=== PATIENT | female | born 1965 | race Caucasian/White ===

== ENCOUNTER → 2016-05-14 | Outpatient (CLI) | payer BC ==
--- NOTE | 2016-05-15 07:48 | MM ---
Reason for exam: screening (asymptomatic). Last mammogram was performed 11 months ago. History: Family history of breast cancer in maternal grandmother and breast cancer in maternal aunt. Physical Findings: A clinical breast exam by your physician is recommended on an annual basis and results should be correlated with mammographic findings. MG 3D Screening Mammo W/Cad Bilateral CC and MLO view(s) were taken. Prior study comparison: June 06, 2015, bilateral MG 3d screening mammo w/cad. The breast tissue is heterogeneously dense. This may lower the sensitivity of mammography. No significant changes when compared with prior studies. ASSESSMENT: Benign, BI-RAD 2 RECOMMENDATION: Routine screening mammogram of both breasts in 1 year.
== END | disposition home or self-care (01) ==
LOC: RADMAMWWP 11:19
PROVIDERS: ATTEND Family Medicine
DX: Z12.31 Encounter for screening mammogram for malignant neoplasm of breast (principal)
CPT/HCPCS: 77063; G0202

== ENCOUNTER → 2019-01-05 | Outpatient (CLI) | payer OTHER ==
--- NOTE | 2019-01-05 11:24 | MM ---
Reason for exam: screening (asymptomatic). Last mammogram was performed 2 years and 8 months ago. History: Family history of breast cancer in maternal grandmother and breast cancer in maternal aunt. Took hormonal contraceptives for 6 months. Physical Findings: A clinical breast exam by your physician is recommended on an annual basis and results should be correlated with mammographic findings. MG 3D Screening Mammo W/Cad Bilateral CC and MLO view(s) were taken. Prior study comparison: May 14, 2016, bilateral MG 3d screening mammo w/cad. June 06, 2015, bilateral MG 3d screening mammo w/cad. The breast tissue is heterogeneously dense. This may lower the sensitivity of mammography. There is an increasing 3mm group of calcifications in the right upper outer quadrant at middle depth. Left central 7mm middle depth asymmetry. Rounded right lateral asymmetry is not seen on MLO and could relate to a vessel. Rolled views will clarify. ASSESSMENT: Incomplete: need additional imaging evaluation, BI-RAD 0 RECOMMENDATION: Special view mammogram of both breasts. If lesion persists on supplemental views, image directed ultrasound is recommended. [facility] will attempt to contact patient to return for supplemental views and ultrasound if indicated.
== END | disposition home or self-care (01) ==
LOC: RADMAMWWP 06:54
PROVIDERS: ATTEND Family Medicine
DX: Z12.31 Encounter for screening mammogram for malignant neoplasm of breast (principal)
CPT/HCPCS: 77063; 77067

== ENCOUNTER → 2019-01-12 | Outpatient (CLI) | payer OTHER ==
--- NOTE | 2019-01-12 10:03 | MM ---
Reason for exam: additional evaluation requested from abnormal screening. Last mammogram was performed less than 1 month ago. History: Patient is postmenopausal. Family history of breast cancer in maternal grandmother and breast cancer in maternal aunt at age 60. Took hormonal contraceptives for 6 months. Physical Findings: Nurse did not find any significant physical abnormalities on exam. MG 3D Work Up W/Cad BOONE Bilateral spot compression CC and ML view(s) were taken. Spot compression ML view(s) were taken of the right breast. Spot compression MLO view(s) were taken of the left breast. Prior study comparison: January 05, 2019, bilateral MG 3d screening mammo w/cad. May 14, 2016, bilateral MG 3d screening mammo w/cad. The breast tissue is heterogeneously dense. This may lower the sensitivity of mammography. There is three total grouped, round, heterogeneous calcifications in the upper outer breast. No distinct nodule/mass persists on additional views bilaterally. These results were verbally communicated with the patient and result sheet given to the patient on 01/12/19. ASSESSMENT: Probably benign, BI-RAD 3 RECOMMENDATION: Follow-up diagnostic mammogram of the right breast in 6 months.
== END | disposition home or self-care (01) ==
LOC: RADMAMWWP 06:50
PROVIDERS: ATTEND Family Medicine
DX: R92.8 Other abnormal and inconclusive findings on diagnostic imaging of breast (principal)
CPT/HCPCS: 77062; 77066

== ENCOUNTER 2019-06-01 08:04 | Observation (INO) | payer OTHER ==
[2019-06-01] MEDS ORDERED: ASPIRIN 81 MG PO STA (08:16)
--- NOTE | 2019-06-01 08:28 | ED ---
Chest Pain HPI <Jesse Cortes - Last Filed: 06/01/19 09:23> - General Source: patient Mode of arrival: wheelchair Limitations: no limitations <Leatha Wang - Last Filed: 06/01/19 10:09> - General Chief Complaint: Chest Pain Stated Complaint: Chest pain Time Seen by Provider: 06/01/19 08:10 - History of Present Illness Initial Comments: Patient is a 53-year-old female presenting to the emergency Department with complaints of intermittent chest pressure for the past 2 days. She's also had a cough and mild shortness of breath. She states she also feels like she is having heart palpitations at times. Patient denies history of heart disease. She has not had a stress test. Patient denies any recent travel, no history of blood clots. Patient describes the pain as pressure in the middle of her sternum. She states yesterday when she was at work she states the pain would come on at random times and last anywhere from one to 3 minutes. Patient states when she woke up this morning she was still feeling the pressure so she wanted to be seen. Currently she rates her discomfort as a 2 out of 10. Patient denies any recent fever, nausea, vomiting, diarrhea. She denies any abdominal pain. She has history of thyroid disease, no other pertinent past medical history. She has a history of hysterectomy. She has no other complaints at this time. Upon arrival to the ER, patient's BP is elevated at 167/107, rest of vitals are normal. (Leatha Wang) - Related Data Home Medications Medication Instructions Recorded Confirmed Ascorbic Acid [Vitamin C] 500 mg PO DAILY 06/01/19 06/01/19 Cholecalciferol [Vitamin D3 (25 1,000 unit PO DAILY 06/01/19 06/01/19 Mcg = 1000 Iu)] Cyanocobalamin (Vitamin B-12) 1,000 mcg PO DAILY 06/01/19 06/01/19 [Vitamin B-12] Dha 1 tab PO DAILY 06/01/19 06/01/19 Fluocinonide [Lidex .05%] 1 applic TOPICAL HS 06/01/19 06/01/19 Furosemide [Lasix] 20 mg PO DAILY 06/01/19 06/01/19 Levothyroxine Sodium [Synthroid] 112 mcg PO DAILY 06/01/19 06/01/19 Magnesium 200 mg PO DAILY 06/01/19 06/01/19 Phytonadione [Vitamin K] 5 mg PO DAILY 06/01/19 06/01/19 Selenium 50 mcg PO DAILY 06/01/19 06/01/19 Vitamin A 8,000 unit PO DAILY 06/01/19 06/01/19 Vitamin E 400 unit PO DAILY 06/01/19 06/01/19 guaiFENesin [Mucinex] 600 mg PO DAILY PRN 06/01/19 06/01/19 Allergies Allergy/AdvReac Type Severity Reaction Status Date / Time Penicillins Allergy Unknown Verified 06/01/19 09:09 Review of Systems ROS Other: All systems not noted in ROS Statement are negative. <Jesse Cortes - Last Filed: 06/01/19 09:23> ROS Other: All systems not noted in ROS Statement are negative. <Leatha Wang - Last Filed: 06/01/19 10:09> ROS Statement: Those systems with pertinent positive or pertinent negative responses have been documented in the HPI. EKG Findings - EKG Comments: EKG Findings:: Ventricular rate 73, IL interval 152, QTC 427. Normal sinus rhythm, normal ECG. No acute ST segment elevations. <Leatha Wang - Last Filed: 06/01/19 10:09> Past Medical History Past Medical History: Thyroid Disorder History of Any Multi-Drug Resistant Organisms: None Reported Past Surgical History: Hysterectomy Past Psychological History: No Psychological Hx Reported Smoking Status: Former smoker Past Alcohol Use History: None Reported Past Drug Use History: None Reported <Leatha Wang - Last Filed: 06/01/19 10:09> General Exam Limitations: no limitations <Leatha Wang - Last Filed: 06/01/19 10:09> - General Exam Comments Initial Comments: GENERAL: Well-appearing, well-nourished and in no acute distress. HEAD: Atraumatic, normocephalic. EYES: Pupils equal round and reactive to light, extraocular movements intact, sclera anicteric, conjunctiva are normal. ENT: TMs normal, nares patent, oropharynx clear without exudates. Moist mucous membranes. NECK: Normal range of motion, supple without lymphadenopathy or JVD. LUNGS: Breath sounds clear to auscultation bilaterally and equal. No wheezes rales or rhonchi. Mild dry cough noted. HEART: Regular rate and rhythm without murmurs, rubs or gallops. No pain with palpation of the sternum. ABDOMEN: Soft, nontender, normoactive bowel sounds. No guarding, no rebound. No masses appreciated. : Deferred EXTREMITIES: Normal range of motion, no pitting or edema. No clubbing or cyanosis. NEUROLOGICAL: Normal speech, normal gait. PSYCH: Normal mood, normal affect. SKIN: Warm, Dry, normal turgor, no rashes or lesions noted. (Leatha Wang) Course <Jesse Cortes - Last Filed: 06/01/19 09:23> Vital Signs 06/01/19 06/01/19 06/01/19 08:06 08:08 09:08 Temperature 97.9 F Pulse Rate 84 68 Respiratory 16 20 20 Rate Blood Pressure 167/107 144/83 O2 Sat by Pulse 96 96 Oximetry - Reevaluation(s) Reevaluation #1: 06/01/19 09:23 PA supervision: I personally evaluate this case patient will be admitted for evaluation of chest pain I did discuss the case with Dr. Rice. EKG does show no evidence of acute findings at this time. Patient did present with chest pain that is suspicious for angina. (Jesse Cortes) Chest Pain [facility] <Leatha Wang - Last Filed: 06/01/19 10:09> - [facility] Patient is a 53-year-old female, with thyroid disorder, presenting with chest pressure intermittently for the past 2 days. Denies history of heart disease, blood clots. BP slightly elevated upon arrival, rest of vitals normal. Normal ECG, no findings of acute ischemia. Patient's lab work is unremarkable, troponin is normal. Chest x-ray shows no acute findings. I discussed with patient that given her symptoms, patient will be admitted for serial troponin and cardiac consultation. Patient is in agreement with this plan of care. Case was discussed with Dr. Cortes. Patient was accepted by Dr. Rice. (Leatha Wang) Disposition <Jesse Cortes - Last Filed: 06/01/19 09:23> Is patient prescribed a controlled substance at d/c from ED?: No Decision Date: 06/01/19 Decision Time: 09:26 <Leatha Wang - Last Filed: 06/01/19 10:09> Clinical Impression: Chest pain Disposition: ADMITTED IP TO THIS [facility] Condition: Stable Referrals: Tavo Card III, MD [Primary Care Provider] - 1-2 days
[2019-06-01 08:31] LABS: Basophils # (A) 0.1 k/uL (0-0.2); Basophils % (A) 1 %; Eosinophils # (A) 0.5 k/uL (0-0.7); Eosinophils % (A) 5 %; HCT 41.5 % (34.0-46.0); HGB 13.9 gm/dL (11.4-16.0); Lymphocytes # (A) 2.1 k/uL (1.0-4.8); Lymphocytes % (A) 22 %; MCH 28.9 pg (25.0-35.0); MCHC 33.5 g/dL (31.0-37.0); MCV 86.4 fL (80.0-100.0); Monocytes # (A) 0.5 k/uL (0-1.0); Monocytes % (A) 5 %; Neutrophils # (A) 6.2 k/uL (1.3-7.7); Neutrophils % (A) 65 %; Platelet Count 240 k/uL (150-450); RDW 12.5 % (11.5-15.5); WBC 9.5 k/uL (3.8-10.6)
[2019-06-01 08:51] LABS: ALT 27 U/L (4-34); AST 27 U/L (14-36); African American GFR (CKD) >90 (>60 ml/min/1.73 sqM); Albumin 3.9 g/dL (3.5-5.0); Alkaline Phosphatase 73 U/L (38-126); Anion Gap 6 mmol/L; Blood Urea Nitrogen 14 mg/dL (7-17); Calcium 9.1 mg/dL (8.4-10.2); Carbon Dioxide 27 mmol/L (22-30); Chloride 104 mmol/L (98-107); Glucose 112 mg/dL (74-99); Magnesium 1.9 mg/dL (1.6-2.3); Non-African American GFR(CKD) >90 (>60 ml/min/1.73 sqM); Potassium 4.2 mmol/L (3.5-5.1); Sodium 137 mmol/L (137-145); Total Bilirubin 0.4 mg/dL (0.2-1.3); Total Protein 6.9 g/dL (6.3-8.2)
[2019-06-01 09:05] LABS: INR 0.9 (<1.2); Partial Thromboplastin Time 22.9 sec (22.0-30.0); Prothrombin Time 9.5 sec (9.0-12.0)
[2019-06-01] MEDS ORDERED: KETOROLAC 30 MG/ML 1 ML VIAL IVP STA (09:23)
[2019-06-01] MEDS ORDERED: NITROGLYCERIN SL TABS 0.4 MG TAB SUBLINGUAL PRN (09:26)
--- NOTE | 2019-06-01 09:41 | XR ---
EXAMINATION TYPE: XR chest 2V DATE OF EXAM: 06/01/2019 COMPARISON: NONE HISTORY: Shortness of breath per order. Chest pain per technologist. TECHNIQUE: Frontal and lateral views of the chest are obtained. FINDINGS: Overlying EKG leads are present. Slightly elevated and eventrated anterior aspect right hem idiaphragm. There is no focal air space opacity, pleural effusion, or pneumothorax seen. The cardiac silhouette size is within normal limits. The osseous structures are intact. IMPRESSION: No acute cardiopulmonary process.
[2019-06-01] MEDS ORDERED: guaiFENesin 600 MG TABLET.ER PO PRN (10:37)
[2019-06-01] MEDS: FUROSEMIDE 20 MG TAB PO SCH (11:08)
--- NOTE | 2019-06-01 12:25 | P.HPIM ---
History of Present Illness 61-year-old pleasant female came in with compensative chest pain multiple episodes intermittent moderate severity in the retrosternal area, initially sharp than dull last for about the 2-10 seconds. Denied any shortness of breath when questioned about pleuritic competent patient says she had chest pain does increase when she takes a deep breath although she doesn't have constant today. Because of which I suspicion for PE is low. Patient denied any diaphoresis or shortness of breath lightheadedness associated with her pain patient pain is not associated with food. Patient denied any history of gastroesophageal reflux disease. Troponins are negative, no acute ST-T wave changes in the EKG which showed sinus rhythm. Patient denied any cough chest x-ray did not show any pneumonia patient is not a smoker Review of Systems REVIEW OF SYSTEMS: CONSTITUTIONAL: No fever, no malaise, no fatigue. HEENT: No recent visual problems or hearing problems. Denied any sore throat. CARDIOVASCULAR: No orthopnea, PND, no palpitations, no syncope. PULMONARY: No shortness of breath, no cough, no hemoptysis. GASTROINTESTINAL: No diarrhea, no nausea, no vomiting, no abdominal pain. NEUROLOGICAL: No headaches, no weakness, no numbness. HEMATOLOGICAL: Denies any bleeding or petechiae. GENITOURINARY: Denies any burning micturition, frequency, or urgency. MUSCULOSKELETAL/RHEUMATOLOGICAL: Denies any joint pain, swelling, or any muscle pain. ENDOCRINE: Denies any polyuria or polydipsia. The rest of the 14-point review of systems is negative. Past Medical History Past Medical History: Thyroid Disorder Additional Past Medical History / Comment(s): Pt states she has fluid retention in her hands/legs and feet. History of Any Multi-Drug Resistant Organisms: None Reported Past Surgical History: Section, Hysterectomy Past Anesthesia/Blood Transfusion Reactions: No Reported Reaction Smoking Status: Former smoker - Past Family History Father Family Medical History: Congestive Heart Failure (CHF) Additional Family Medical History / Comment(s): Father from CHF at the age of 83 yrs. Mother Family Medical History: Deep Vein Thrombosis (DVT) Medications and Allergies Home Medications Medication Instructions Recorded Confirmed Type Ascorbic Acid [Vitamin C] 500 mg PO DAILY 06/01/19 06/01/19 History Cholecalciferol [Vitamin D3 (25 1,000 unit PO DAILY 06/01/19 06/01/19 History Mcg = 1000 Iu)] Cyanocobalamin (Vitamin B-12) 1,000 mcg PO DAILY 06/01/19 06/01/19 History [Vitamin B-12] Dha 1 tab PO DAILY 06/01/19 06/01/19 History Fluocinonide [Lidex .05%] 1 applic TOPICAL HS 06/01/19 06/01/19 History Furosemide [Lasix] 20 mg PO DAILY 06/01/19 06/01/19 History Levothyroxine Sodium [Synthroid] 112 mcg PO DAILY 06/01/19 06/01/19 History Magnesium 200 mg PO DAILY 06/01/19 06/01/19 History Phytonadione [Vitamin K] 5 mg PO DAILY 06/01/19 06/01/19 History Selenium 50 mcg PO DAILY 06/01/19 06/01/19 History Vitamin A 8,000 unit PO DAILY 06/01/19 06/01/19 History Vitamin E 400 unit PO DAILY 06/01/19 06/01/19 History guaiFENesin [Mucinex] 600 mg PO DAILY PRN 06/01/19 06/01/19 History Allergies Allergy/AdvReac Type Severity Reaction Status Date / Time Penicillins Allergy Unknown Verified 06/01/19 09:09 Physical Exam Vitals: Vital Signs Temp Pulse Pulse Resp BP BP Pulse Ox 06/01/19 10:37 98.3 F 66 18 142/78 94 L 06/01/19 10:16 16 06/01/19 10:00 70 17 144/83 97 06/01/19 09:30 67 16 158/79 97 06/01/19 09:08 68 20 144/83 96 06/01/19 09:00 71 16 150/78 99 06/01/19 08:30 72 16 99 06/01/19 08:20 74 20 98 06/01/19 08:08 20 06/01/19 08:06 97.9 F 84 16 167/107 96 Intake and Output 05/31/19 06/01/19 06/01/19 22:59 06:59 14:59 Other: # Voids 1 Weight 99.79 kg PHYSICAL EXAMINATION: GENERAL: The patient is alert and oriented x3, not in any acute distress. Well developed, well nourished. HEENT: Pupils are round and equally reacting to light. EOMI. No scleral icterus. No conjunctival pallor. Normocephalic, atraumatic. No pharyngeal erythema. No thyromegaly. CARDIOVASCULAR: S1 and S2 present. No murmurs, rubs, or gallops. PULMONARY: Chest is clear to auscultation, no wheezing or crackles. ABDOMEN: Soft, nontender, nondistended, normoactive bowel sounds. No palpable o rganomegaly. MUSCULOSKELETAL: No joint swelling or deformity. EXTREMITIES: No cyanosis, clubbing, or pedal edema. NEUROLOGICAL: Gross neurological examination did not reveal any focal deficits. SKIN: No rashes. Results CBC & Chem 7: 06/01/19 08:20 06/01/19 08:20 Labs: Abnormal Lab Results - Last 24 Hours (Table) 06/01/19 Range/Units 08:20 Glucose 112 H (74-99) mg/dL Thrombosis Risk Factor Assmnt - Choose All That Apply Any of the Below Risk Factors Present?: Yes Each Factor Represents 1 point: Age 41-60 years, Obesity (BMI >25) Other Risk Factors: No Other congenital or acquired thrombophilia - If yes, enter type in comment: No Thrombosis Risk Factor Assessment Total Risk Factor Score: 2 Thrombosis Risk Factor Assessment Level: Low Risk Assessment and Plan Plan: Chest pain: We will rule out acute coronary syndromes and unstable angina 2 sets of troponins and EKGs cardiology was consulted suspicion for PE is low, no evidence of pneumonia. All the etiology of her chest pain is not clear -Hypothyroidism: TSH will be obtained and patient is on Synthroid which will be continued -Venous stasis edema of both legs presently doesn't have any edema and does take Lasix for that
[2019-06-01] MEDS: ACETAMINOPHEN TAB 325 MG TAB PO PRN (17:22)
[2019-06-02 04:02] VITALS: RESP 16
[2019-06-02 04:20] LABS: Cholesterol 220 mg/dL (<200); HDL Cholesterol 34 mg/dL (40-60); LDL Cholesterol,Calculated 148 mg/dL (0-99); Triglycerides 190 mg/dL (<150)
[2019-06-02] MEDS: ACETAMINOPHEN TAB 325 MG TAB PO PRN (04:48)
[2019-06-02] MEDS ORDERED: LEVOTHYROXINE 112 MCG TAB PO SCH (06:30)
[2019-06-02 07:22] VITALS: BP 136/78; PULSE 64; TEMP 97.9
[2019-06-02] MEDS ORDERED: ASPIRIN 81 MG PO SCH (09:00)
[2019-06-02] MEDS ORDERED: ASPIRIN 325 MG TAB PO SCH (09:00)
[2019-06-02] MEDS ORDERED: FUROSEMIDE 20 MG TAB PO SCH (09:00)
[2019-06-02] MEDS: FUROSEMIDE 20 MG TAB PO SCH (09:47)
[2019-06-02] MEDS ORDERED: TRIAMTERENE-HCTZ 37.5-25MG 1 EACH TAB PO SCH (11:00)
--- NOTE | 2019-06-02 11:34 | ECHOF ---
Referral Reason:sob, murmur MEASUREMENTS -------- HEIGHT: 160.0 cm WEIGHT: 105.7 kg BP: RVIDd: 3.7 cm (< 3.3) IVSd: 1.0 cm (0.6 - 1.1) LVIDd: 3.6 cm (3.9 - 5.3) LVPWd: 1.1 cm (0.6 - 1.1) IVSs: 1.4 cm LVIDs: 2.4 cm LVPWs: 1.5 cm LA Diam: 4.1 cm (2.7 - 3.8) LAESV Index (A-L): 23.20 ml/m Ao Diam: 3.0 cm (2.0 - 3.7) AV Cusp: 1.8 cm (1.5 - 2.6) LA Diam: 4.2 cm (2.7 - 3.8) MV EXCURSION: 16.312 mm (> 18.000) MV EF SLOPE: 77 mm/s (70 - 150) EPSS: 0.3 cm MV E Omar: 0.61 m/s MV DecT: 216 ms MV A Omar: 0.69 m/s MV E/A Ratio: 0.89 RAP: 5.00 mmHg RVSP: 11.95 mmHg FINDINGS -------- Sinus rhythm. This was a technically good study. LV size, wall thickness and systolic function are normal, with an EF greater than 55%. The left frances tricular size is normal. The diastolic filling pattern is normal for the age of the patient 9.03. The right ventricle is normal in size. The left atrial size is normal. Normal LA size by volume 22+/-6 ml/m2. The right atrial size is normal. The aortic valve is trileaflet, and appears structurally normal. No aortic stenosis or regurgitation. Mild mitral regurgitation is present. Mild tricuspid regurgitation present. Right ventricular systolic pressure is normal at < 35 mmHg. There is no evidence of pulmonary hypertension. There is no pulmonic regurgitation present. The aortic root size is normal. There is no pericardial effusion. CONCLUSIONS -------- 1. Sinus rhythm. 2. This was a technically good study. 3. LV size, wall thickness and systolic function are normal, with an EF greater than 55%. 4. The left ventricular size is normal. 5. The diastolic filling pattern is normal for the age of the patient 9.03 6. The right ventricle is normal in size. 7. The left atrial size is normal. 8. Normal LA size by volume 22+/-6 ml/m2. 9. The right atrial size is normal. 10. The aortic valve is trileaflet, and appears structurally normal. No aortic stenosis or regurgitat ion. 11. Mild mitral regurgitation is present. 12. Mild tricuspid regurgitation present. 13. Right ventricular systolic pressure is normal at < 35 mmHg. 14. There is no evidence of pulmonary hypertension. 15. There is no pulmonic regurgitation present. 16. The aortic root size is normal. 17. There is no pericardial effusion. PHONOGRAPH MECHANIC: Mcihelle Barton RDCS
[2019-06-02] MEDS ORDERED: COLCHICINE 0.6 MG EACH PO SCH (12:00)
--- NOTE | 2019-06-02 12:07 | P.CRDCN ---
History of Present Illness History of present illness: HISTORY OF PRESENTING ILLNESS This is a pleasant 53-year-old female past medical history significant for hypothyroidism and former nicotine dependence. 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 We have been asked to see in consultation for chest pain. Wednesday while at work she was experiencing sharp pain in the midsternal region. The pain was intermittent and ongoing all day Wednesday with no specific aggravating or alleviating factors. There was no radiation of the pain through to the back, down the arms, into the neck or jaw. There is no specific associated symptoms. She denies shortness of breath, dizziness, palpitations, nausea, vomiting or diaphoresis. morning she again experienced episodes of sharp discomfort however the pain seemed to intensify in nature. She states approximately one week ago she started coughing however her pain is not exacerbated by cough or deep inspiration. She does continue to have a dry cough with significant amount of nasal drainage and congestion. On arrival her blood pressure is elevated 167/107 and 150/78. Echocardiogram obtained reveals preserved LV systolic function with ejection fraction 55%, mild MR and mild TR noted. Prominent pericardial stripe suggestive of pericarditis. DIAGNOSTICS EKG reveals sinus mechanism with no acute ST or T wave abnormalities noted. Telemetry tracings unremarkable. Chest xray good for any acute cardiopulmonary process. Laboratory reviewed, CBC unremarkable, sodium 137, potassium 4.2, creatinine 0.6, cardiac enzymes negative 3, LDL 148, HDL 34 and TSH 1.65. Current cardiac medications include Lasix 20 mg daily for hand and ankle swelling. REVIEW OF SYSTEMS At the time of my exam: CONSTITUTIONAL: Denies fever or chills. CARDIOVASCULAR: Denies chest pain, shortness of breath, orthopnea, PND or palpitations. RESPIRATORY: Denies cough. GASTROINTESTINAL: Denies abdominal pain, diarrhea, constipation, nausea or vomiting. MUSCULOSKELETAL: Denies myalgias. NEUROLOGIC: Denies numbness, tingling or weakness. ENDOCRINE: Denies fatigue, weight change, polydipsia or polyurina. GENITOURINARY: Denies burning, hematuria or urgency with micturation. HEMATOLOGIC: Denies history of anemia or bleeding. PHYSICAL EXAMINATION Blood pressure 136/78 heart rate 64 afebrile and maintaining oxygen saturation on room air. CONSTITUTIONAL: No apparent distress. HEENT: Head is normocephalic. Pupils are equal, round. Sclerae anicteric. Mucous membranes of the mouth are moist. No JVD. No carotid bruit. CHEST EXAMINATION: Lungs are clear to auscultation. No chest wall tenderness is noted on palpation or with deep breathing. HEART EXAMINATION: Regular rate and rhythm. S1, S2 heard. Soft systolic ejection murmur at the base, no gallops or rub. ABDOMEN: Soft, nontender. Positive bowel sounds. EXTREMITIES: 2+ peripheral pulses, no lower extremity edema and no calf tenderness. NEUROLOGIC EXAMINATION: Patient is awake, alert and oriented x3. ASSESSMENT Chest pain, atypical. An acute coronary event has been ruled out. Dyslipidemia Hypertension Hypothyroidism PLAN An acute coronary event has been ruled out. Blood pressure levels averaging above 140 systolic. She will be intiated on maxide for blood pressure control and relief of her hand and ankle swelling. Discontinue lasix. Given the pericardial striping noted, initiate colchicine 0.6 mg BID for 7 days along with protonix. Increase activity and ambulation in the halls. Follow up in the office with Dr. Ledezma in 2 weeks. Advised her to check her blood pressure daily and bring a journal of readings to her follow up appointment. Thank you kindly for this consultation. Nurse Practitioner note has been reviewed, I agree with a documented findings and plan of care. Patient was seen and examined. Past Medical History Past Medical History: Thyroid Disorder Additional Past Medical History / Comment(s): Pt states she has fluid retention in her hands/legs and feet. History of Any Multi-Drug Resistant Organisms: None Reported Past Surgical History: Section, Hysterectomy Past Anesthesia/Blood Transfusion Reactions: No Reported Reaction Smoking Status: Former smoker - Past Family History Father Family Medical History: Congestive Heart Failure (CHF) Additional Family Medical History / Comment(s): Father from CHF at the age of 83 yrs. Mother Family Medical History: Deep Vein Thrombosis (DVT) Medications and Allergies Home Medications Medication Instructions Recorded Confirmed Type Ascorbic Acid [Vitamin C] 500 mg PO DAILY 06/01/19 06/01/19 History Cholecalciferol [Vitamin D3 (25 1,000 unit PO DAILY 06/01/19 06/01/19 History Mcg = 1000 Iu)] Cyanocobalamin (Vitamin B-12) 1,000 mcg PO DAILY 06/01/19 06/01/19 History [Vitamin B-12] Dha 1 tab PO DAILY 06/01/19 06/01/19 History Fluocinonide [Lidex .05%] 1 applic TOPICAL HS 06/01/19 06/01/19 History Levothyroxine Sodium [Synthroid] 112 mcg PO DAILY 06/01/19 06/01/19 History Magnesium 200 mg PO DAILY 06/01/19 06/01/19 History Phytonadione [Vitamin K] 5 mg PO DAILY 06/01/19 06/01/19 History Selenium 50 mcg PO DAILY 06/01/19 06/01/19 History Vitamin A 8,000 unit PO DAILY 06/01/19 06/01/19 History Vitamin E 400 unit PO DAILY 06/01/19 06/01/19 History guaiFENesin [Mucinex] 600 mg PO DAILY PRN 06/01/19 06/01/19 History Colchicine [Colcrys] 0.6 mg PO BID #14 each 06/02/19 Rx Rosuvastatin Calcium [Crestor] 10 mg PO DAILY #90 tab 06/02/19 Rx Triamterene-Hctz 37.5-25Mg 1 each PO DAILY #90 tab 06/02/19 Rx [Maxzide 37.5-25] Allergies Allergy/AdvReac Type Severity Reaction Status Date / Time Penicillins Allergy Unknown Verified 06/01/19 09:09 Physical Exam Vitals: Vital Signs Temp Pulse Pulse Resp BP BP Pulse Ox 06/02/19 07:21 97.9 F 64 136/78 97 06/02/19 04:00 98.4 F 66 16 139/78 98 06/01/19 23:51 98.0 F 71 16 141/70 98 06/01/19 23:36 17 06/01/19 19:30 98.2 F 77 17 142/92 98 06/01/19 19:10 77 17 06/01/19 16:00 97.5 F L 71 138/83 99 06/01/19 10:37 98.3 F 66 18 142/78 94 L 06/01/19 10:16 16 06/01/19 10:00 70 17 144/83 97 06/01/19 09:30 67 16 158/79 97 06/01/19 09:08 68 20 144/83 96 06/01/19 09:00 71 16 150/78 99 06/01/19 08:30 72 16 99 06/01/19 08:20 74 20 98 Intake and Output 06/01/19 06/02/19 06/02/19 22:59 06:59 14:59 Intake Total 480 480 Balance 480 480 Intake: Oral 480 480 Other: # Voids 1 1 Weight 106 kg Results 06/01/19 08:20 06/01/19 08:20 Cardiac Enzymes 06/01/19 06/01/19 06/01/19 Range/Units 08:20 08:20 15:05 AST 27 (14-36) U/L Troponin I <0.012 <0.012 (0.000-0.034) ng/mL 06/01/19 Range/Units 20:17 AST (14-36) U/L Troponin I <0.012 (0.000-0.034) ng/mL Coagulation 06/01/19 Range/Units 08:20 PT 9.5 (9.0-12.0) sec APTT 22.9 (22.0-30.0) sec Lipids 06/01/19 Range/Units 08:20 Triglycerides 190 H (<150) mg/dL Cholesterol 220 H (<200) mg/dL HDL Cholesterol 34 L (40-60) mg/dL CBC 06/01/19 Range/Units 08:20 WBC 9.5 (3.8-10.6) k/uL RBC 4.80 (3.80-5.40) m/uL Hgb 13.9 (11.4-16.0) gm/dL Hct 41.5 (34.0-46.0) % Plt Count 240 (150-450) k/uL Comprehensive Metabolic Panel 06/01/19 Range/Units 08:20 Sodium 137 (137-145) mmol/L Potassium 4.2 (3.5-5.1) mmol/L Chloride 104 (98-107) mmol/L Carbon Dioxide 27 (22-30) mmol/L BUN 14 (7-17) mg/dL Creatinine 0.60 (0.52-1.04) mg/dL Glucose 112 H (74-99) mg/dL Calcium 9.1 (8.4-10.2) mg/dL AST 27 (14-36) U/L ALT 27 (4-34) U/L Alkaline Phosphatase 73 (38-126) U/L Total Protein 6.9 (6.3-8.2) g/dL Albumin 3.9 (3.5-5.0) g/dL Current Medications Generic Name Dose Route Start Last Admin Trade Name Freq PRN Reason Stop Dose Admin Acetaminophen 650 mg 06/01/19 17:18 06/02/19 04:48 Tylenol Tab PO 650 mg Q6HR PRN Administration Fever and/ or Pain Aspirin 81 mg 06/02/19 09:00 Aspirin PO DAILY ERICK Furosemide 20 mg 06/01/19 10:50 06/01/19 11:08 Lasix PO 20 mg DAILY ERICK Administration Guaifenesin 600 mg 06/01/19 10:37 Mucinex PO DAILY PRN Congestion Levothyroxine Sodium 112 mcg 06/02/19 06:30 06/02/19 05:44 Synthroid PO 112 mcg DAILY@0630 [facility] Administration Nitroglycerin 0.4 mg 06/01/19 09:26 Nitrostat SUBLINGUAL Q5M PRN Chest Pain Intake and Output 06/01/19 06/02/19 06/02/19 22:59 06:59 14:59 Intake Total 480 480 Balance 480 480 Intake: Oral 480 480 Other: # Voids 1 1 Weight 106 kg 06/01/19 08:20 06/01/19 08:20
== END 2019-06-02 12:36 | disposition home or self-care (01) ==
LOC: EC 08:04 → 1SOBS 09:30
PROVIDERS: ADMIT Internal Medicine; ATTEND Internal Medicine
DX: R07.89 Other chest pain (principal); E03.9 Hypothyroidism, unspecified; Z87.891 Personal history of nicotine dependence; I10 Essential (primary) hypertension; I87.8 Other specified disorders of veins; R05 Cough; E78.5 Hyperlipidemia, unspecified; E66.9 Obesity, unspecified; I08.1 Rheumatic disorders of both mitral and tricuspid valves; Z90.710 Acquired absence of both cervix and uterus; Z79.890 Hormone replacement therapy; Z79.899 Other long term (current) drug therapy; Z88.0 Allergy status to penicillin; Z82.49 Family history of ischemic heart disease and other diseases of the circulatory system
CPT/HCPCS: 93005 ×2; 96374; 99285; 36415; 93306; 80061; 80053; 84443; 83735; 84484; 85025; 85610; 85730; 87502; 71046; G0378 ×2; J1885

== ENCOUNTER → 2021-09-11 | Outpatient (CLI) | payer BC ==
--- NOTE | 2021-09-13 14:18 | MM ---
Reason for Exam: Screening (asymptomatic). Last mammogram was performed 2 year(s) and 8 month(s) ago. Patient History: Menarche at age 15. First Full-Term at age 23. Left ovary removed at age 36. Hysterectomy at age 36. Postmenopausal. Hormonal Contraceptives for 6 months. Maternal grandmother had breast cancer. Maternal aunt had breast cancer, age 60. Risk Values: Marie 5 year model risk: 1.0%. NCI Lifetime model risk: 7.7%. Prior Study Comparison: 05/14/2016 Bilateral Screening Mammogram, [facility]. 01/05/2019 Bilateral Screening Mammogram, [facility]. 01/12/2019 Bilateral Diagnostic Mammogram, [facility]. Tissue Density: There are scattered fibroglandular densities. Findings: Analyzed By CAD. No significant change from prior exams. Overall Assessment: Negative, BI-RAD 1 Management: Screening Mammogram of both breasts in 1 year. A clinical breast exam by your physician is recommended on an annual basis and results should be correlated with mammographic findings. Also, the patient should continue monthly self breast exams. Electronically signed and approved by: Amberly Gonzalez M.D. Radiologist
== END | disposition home or self-care (01) ==
LOC: RADMAMWWP 06:54
PROVIDERS: ATTEND Family Medicine
DX: Z12.31 Encounter for screening mammogram for malignant neoplasm of breast (principal); Z78.0 Asymptomatic menopausal state; Z80.3 Family history of malignant neoplasm of breast
CPT/HCPCS: 77063; 77067

== ENCOUNTER → 2022-09-15 | Outpatient (CLI) | payer BC ==
--- NOTE | 2022-09-15 17:32 | MM ---
Reason for Exam: Screening (asymptomatic). Last screening mammogram was performed 12 month(s) ago. Patient History: Menarche at age 15. First Full-Term at age 23. Left ovary removed at age 36. Hysterectomy at age 36. Postmenopausal. Hormonal Contraceptives for 6 months. Maternal grandmother had breast cancer. Maternal aunt had breast cancer, age 60. Risk Values: Marie 5 year model risk: 1.0%. NCI Lifetime model risk: 7.5%. Prior Study Comparison: 01/05/2019 Bilateral Screening Mammogram, [facility]. 01/12/2019 Bilateral Diagnostic Mammogram, [facility]. 09/11/2021 Bilateral MG 3D screening mammo w/cad, [facility]. Tissue Density: There are scattered fibroglandular densities. Findings: Analyzed By CAD. There is no suspicious group of microcalcifications or new suspicious mass in either breast. Overall Assessment: Negative, BI-RAD 1 Management: Screening Mammogram of both breasts in 1 year. . Patient should continue monthly self-breast exams. A clinical breast exam by your physician is recommended on an annual basis. This exam should not preclude additional follow-up of suspicious palpable abnormalities. Note on Marie scores and lifetime risk: 1. A Marie score greater than 3% is considered moderate risk. If this is the case, consider specialist referral to assess eligibility for a risk reducing agent. 2. If overall lifetime risk for the development of breast cancer is 20% or higher, the patient may qualify for future screening with alternating mammogram and breast MRI. Electronically signed and approved by: Amberly Gonzalez M.D. Radiologist
== END ==
LOC: RADMAMWWP 06:45
PROVIDERS: ATTEND Family Medicine
DX: Z12.31 Encounter for screening mammogram for malignant neoplasm of breast (principal); Z78.0 Asymptomatic menopausal state; Z80.3 Family history of malignant neoplasm of breast
CPT/HCPCS: 77063; 77067